=== PATIENT | male | born 1955 | race Caucasian/White ===

== ENCOUNTER 2017-11-08 13:10 | Emergency (ER) | payer MEDICAID, OTHER ==
[~2017-11-08] VITALS: Ht 180.3 cm; Wt 75.0 kg
[~2017-11-08 13:10] MED LIST: [UNRECOGNIZED DRUG - CODE] OT
[2017-11-08 13:41] VITALS: BP 149/90
[2017-11-08] MEDS ORDERED: AMOX500C2 PO (14:07)
== END 2017-11-08 14:22 | disposition home or self-care (01) ==
LOC: ER 13:11
DX: H92.01 Otalgia, right ear (principal); Z79.899 Other long term (current) drug therapy
CPT/HCPCS: 99283

== ENCOUNTER 2019-01-19 12:22 | Inpatient (IN) | payer MEDICAID, OTHER ==
[~2019-01-19] VITALS: Ht 180.3 cm; Wt 72.7 kg
[2019-01-19 12:52] LABS: BASOPHILS % (AUTO) 0.8 % (0-1); EOSINOPHILS # (AUTO) 0.1 X10'3 (0-0.9); EOSINOPHILS % (AUTO) 0.9 % (0-6); HEMATOCRIT 40.2 % (42.0-52.0); HEMOGLOBIN 13.8 g/dl (14.0-17.9); LYMPHOCYTES # (AUTO) 1.7 X10'3 (1.1-4.8); LYMPHOCYTES % (AUTO) 28.3 % (21-51); MEAN CORPUSCULAR HGB CONC 34.5 g/dL (33.0-36.5); MEAN PLATELET VOLUME 7.1 FL (7.4-10.4); MONOCYTES # (AUTO) 0.4 X10'3 (0-0.9); MONOCYTES % (AUTO) 6.7 % (2-12); NEUTROPHILS # (AUTO) 3.9 X10'3 (1.8-7.7); NEUTROPHILS % (AUTO) 63.3 % (42-75); PLATELET COUNT 258 X10'3 (140-440); RED BLOOD COUNT 4.62 X10'6 (4.70-6.10); RED CELL DISTRIBUTION WIDTH 13.2 % (11.5-14.5); WHITE BLOOD COUNT 6.2 X10'3 (4.5-11.0)
[2019-01-19 13:04] LABS: PARTIAL THROMBOPLASTIN TIME 27 SECONDS (22-32)
[2019-01-19] MEDS ORDERED: aspirin 325mg tablet PO ONE (13:10)
[2019-01-19 13:12] LABS: ALANINE AMINOTRANSFERASE 22 U/L (12-78); ALBUMIN 4.2 G/DL (3.4-5.0); ALBUMIN/GLOBULIN RATIO 1.1 (1.1-1.5); ALKALINE PHOSPHATASE 64 IU/L (46-116); ANION GAP 7 (8-16); ASPARTATE AMINO TRANSFERASE 20 U/L (10-37); BILIRUBIN,TOTAL 0.5 MG/DL (0.1-1.0); BLOOD UREA NITROGEN 9 MG/DL (7-18); BUN/CREATININE RATIO 10.8 (5.4-32.0); CALCIUM 8.7 MG/DL (8.5-10.1); CHLORIDE 107 MMOL/L (99-107); CREATININE 0.83 MG/DL (0.60-1.10); GLUCOSE 95 MG/DL (70-104); SODIUM 142 MMOL/L (135-145); TOTAL CARBON DIOXIDE 28.4 MMOL/L (24-32); TOTAL PROTEIN 8.2 G/DL (6.4-8.2); eGFR > 90 ML/MIN
[2019-01-19] MEDS: nitroGLYCERIN 0.4mg SUBLingual tab SL PRN ×3 (13:15→13:29)
[2019-01-19] MEDS ORDERED: mag hydrox/Alum hydrox/simeth 30ml oral suspension PO PRN (14:25)
[2019-01-19] MEDS ORDERED: morphine 2 MG/ML inj. syringe IV PRN ×2 (14:25)
[2019-01-19] MEDS ORDERED: acetaminophen 325mg tablet PO PRN (14:25)
[2019-01-19] MEDS ORDERED: ondansetron/PF 4mg/2ml inj IV PRN (14:25)
[2019-01-19] MEDS ORDERED: HYDROcodone/acetaminophen 5mg/325mg tablet PO PRN (14:25)
[2019-01-19] MEDS ORDERED: magnesium hydroxide 30ml (MOM) UD suspension PO PRN (14:25)
[2019-01-19] MEDS ORDERED: NO HOME MEDS (14:28)
[2019-01-19] MEDS: nitroGLYCERIN 0.4mg/hour patch TD SCH (14:39)
--- NOTE | 2019-01-19 15:57 | NUR ---
PAGED DR. NARANJO TO TELL HIM PT. HAS 5/10 CP DESCRIBES IT PRESSURE TO STERNAL AREA. GETTING A 12-LEAD EKG AND GIVING PT. MORPHINE.
[2019-01-19] MEDS ORDERED: regadenoson 0.4mg/5ml syringe IV ONE (17:55)
[2019-01-19] MEDS ORDERED: nitroGLYCERIN 0.4mg SUBLingual tab SL PRN (17:55)
[2019-01-19] MEDS ORDERED: metoprolol tartrate 1mg/ml inj IV PRN (17:55)
[2019-01-19] MEDS ORDERED: aminophylline 250mg/10ml inj. IV PRN (17:55)
[2019-01-19 20:00] VITALS: BP 143/73
[2019-01-19 22:00] VITALS: BP 120/51
[2019-01-20] VITALS (18 sets, daily range): BP systolic 105–187; BP diastolic 54–97
[2019-01-20 01:05] LABS: BASOPHILS % (AUTO) 0.6 % (0-1); EOSINOPHILS # (AUTO) 0.1 X10'3 (0-0.9); HEMATOCRIT 38.1 % (42.0-52.0); HEMOGLOBIN 13.2 g/dl (14.0-17.9); LYMPHOCYTES # (AUTO) 1.3 X10'3 (1.1-4.8); LYMPHOCYTES % (AUTO) 15.8 % (21-51); MEAN CORPUSCULAR HEMOGLOBIN 29.8 PG (27.0-31.0); MEAN CORPUSCULAR HGB CONC 34.7 g/dL (33.0-36.5); MEAN CORPUSCULAR VOLUME 85.7 FL (78-98); MEAN PLATELET VOLUME 7.5 FL (7.4-10.4); MONOCYTES # (AUTO) 0.6 X10'3 (0-0.9); MONOCYTES % (AUTO) 7.2 % (2-12); NEUTROPHILS # (AUTO) 6.1 X10'3 (1.8-7.7); NEUTROPHILS % (AUTO) 75.4 % (42-75); PLATELET COUNT 233 X10'3 (140-440); RED BLOOD COUNT 4.44 X10'6 (4.70-6.10); WHITE BLOOD COUNT 8.1 X10'3 (4.5-11.0)
[2019-01-20 01:18] LABS: ALBUMIN 3.7 G/DL (3.4-5.0); ANION GAP 7 (8-16); BLOOD UREA NITROGEN 13 MG/DL (7-18); BUN/CREATININE RATIO 15.5 (5.4-32.0); CALCIUM 8.8 MG/DL (8.5-10.1); CHLORIDE 108 MMOL/L (99-107); CREATININE 0.84 MG/DL (0.60-1.10); GLUCOSE 106 MG/DL (70-104); POTASSIUM 3.8 MMOL/L (3.5-5.1); SODIUM 143 MMOL/L (135-145); TOTAL CARBON DIOXIDE 27.7 MMOL/L (24-32); eGFR > 90 ML/MIN
--- NOTE | 2019-01-20 06:18 | NUR ---
Problems reprioritized. Patient report given, questions answered & plan of care reviewed with Teresa BOSTON
--- NOTE | 2019-01-20 06:29 | NUR ---
Received report from Alex BOSTON
[2019-01-20] MEDS: enoxaparin 40mg/0.4ml syringe SUBCUT SCH (08:00)
[2019-01-20] MEDS: nitroGLYCERIN 0.4mg/hour patch TD SCH (08:00)
[2019-01-20] MEDS: normal saline 1000ml 1,000 ML IV SCH (20:53)
[2019-01-21] VITALS (12 sets, daily range): BP systolic 110–153; BP diastolic 67–94
[2019-01-21] MEDS: normal saline 1000ml 1,000 ML IV SCH (04:20)
--- NOTE | 2019-01-21 06:00 | NUR ---
Patient in room [facility]. I have received report from Malou BOSTON and had the opportunity to ask questions and assume patient care.
[2019-01-21 06:18] LABS: BASOPHILS % (AUTO) 0.4 % (0-1); EOSINOPHILS # (AUTO) 0.1 X10'3 (0-0.9); EOSINOPHILS % (AUTO) 2.2 % (0-6); HEMATOCRIT 40.2 % (42.0-52.0); HEMOGLOBIN 13.8 g/dl (14.0-17.9); LYMPHOCYTES # (AUTO) 1.8 X10'3 (1.1-4.8); LYMPHOCYTES % (AUTO) 30.4 % (21-51); MEAN CORPUSCULAR HEMOGLOBIN 29.6 PG (27.0-31.0); MEAN CORPUSCULAR HGB CONC 34.4 g/dL (33.0-36.5); MEAN PLATELET VOLUME 7.8 FL (7.4-10.4); MONOCYTES # (AUTO) 0.5 X10'3 (0-0.9); MONOCYTES % (AUTO) 8.8 % (2-12); NEUTROPHILS # (AUTO) 3.4 X10'3 (1.8-7.7); NEUTROPHILS % (AUTO) 58.2 % (42-75); PLATELET COUNT 250 X10'3 (140-440); RED BLOOD COUNT 4.67 X10'6 (4.70-6.10); RED CELL DISTRIBUTION WIDTH 12.7 % (11.5-14.5); WHITE BLOOD COUNT 5.9 X10'3 (4.5-11.0)
--- NOTE | 2019-01-21 06:31 | NUR ---
Problems reprioritized. Patient report given, questions answered & plan of care reviewed with DARVIN DAVISON.
[2019-01-21 06:46] LABS: ALBUMIN 3.6 G/DL (3.4-5.0); ANION GAP 8 (8-16); BLOOD UREA NITROGEN 12 MG/DL (7-18); BUN/CREATININE RATIO 12.5 (5.4-32.0); CALCIUM 8.5 MG/DL (8.5-10.1); CHLORIDE 109 MMOL/L (99-107); CHOL/HDL RATIO 3.7 (0.00-4.99); CHOLESTEROL 168 MG/DL (0-200); CREATININE 0.96 MG/DL (0.60-1.10); GLUCOSE 89 MG/DL (70-104); HDL CHOLESTEROL 46 MG/DL (35-60); LDL CHOLESTEROL 112 MG/DL (50-100); POTASSIUM 4.1 MMOL/L (3.5-5.1); SODIUM 145 MMOL/L (135-145); TOTAL CARBON DIOXIDE 28.3 MMOL/L (24-32); TRIGLYCERIDES 52 MG/DL (20-135); eGFR 79 ML/MIN
[2019-01-21] MEDS ORDERED: midazolam 2 mg/2 ml injection ONE (07:40)
[2019-01-21] MEDS ORDERED: iohexol 350 MG/ML 50ML vial IV ONE (07:40)
[2019-01-21] MEDS ORDERED: LIDOcaine 1% (10mg/ml)w/preservative injection 20ml MDV ONE (07:40)
[2019-01-21] MEDS ORDERED: iohexol 350MG/ML 100ml bottle IV ONE (07:40)
[2019-01-21] MEDS ORDERED: fentaNYL/PF 50MCG/1 ML 2ML syringe ONE (07:40)
[2019-01-21] MEDS ORDERED: diphenhydrAMINE 50 mg/ml inj ONE (07:57)
[2019-01-21] MEDS ORDERED: hydrocortisone sod succ/PF 100mg/2ml inj. ONE (07:57)
[2019-01-21] MEDS: enoxaparin 40mg/0.4ml syringe SUBCUT SCH (08:00)
[2019-01-21] MEDS ORDERED: metoprolol succinate 25mg (24-HOUR) SR. Tablet PO SCH (08:00)
[2019-01-21] MEDS ORDERED: atorvastatin 20mg tablet PO SCH (08:00)
[2019-01-21] MEDS: nitroGLYCERIN 0.4mg/hour patch TD SCH (08:00)
--- NOTE | 2019-01-21 15:00 | NUR ---
Patient stable for discharge home today. All belongings sent with patient, accompanied by daughter. IV out and discharge instructions given to patient and daughter.
== END 2019-01-21 15:00 | disposition home health service (06) | DRG 287 ==
LOC: ER 12:23 → ED HOLD 15:53 → EDBEDREQ 16:41 → ORTHO 4S 19:20 → OBSVTOIN 01-21 08:50
PROVIDERS: ADMIT Internal Medicine; ATTEND Internal Medicine
PROC: 3E033HZ Introduction of Radioactive Substance into Peripheral Vein, Percutaneous Approach (ICD-10-PCS; 2019-01-20)
PROC: 4A02XM4 Measurement of Cardiac Total Activity, External Approach (ICD-10-PCS; 2019-01-20)
PROC: 4A023N7 Measurement of Cardiac Sampling and Pressure, Left Heart, Percutaneous Approach (ICD-10-PCS; principal; 2019-01-21)
PROC: B2111ZZ Fluoroscopy of Multiple Coronary Arteries using Low Osmolar Contrast (ICD-10-PCS; 2019-01-21)
PROC: B2151ZZ Fluoroscopy of Left Heart using Low Osmolar Contrast (ICD-10-PCS; 2019-01-21)
DX: I25.119 Atherosclerotic heart disease of native coronary artery with unspecified angina pectoris (principal); R94.39 Abnormal result of other cardiovascular function study; E11.65 Type 2 diabetes mellitus with hyperglycemia; I10 Essential (primary) hypertension; I16.0 Hypertensive urgency; Z83.3 Family history of diabetes mellitus; Z87.11 Personal history of peptic ulcer disease; Z87.891 Personal history of nicotine dependence; Z91.041 Radiographic dye allergy status
CPT/HCPCS: 36415; 71045; 78452; 80048; 80053; 80061; 83880; 84484; 85025; 85610; 85730; 87081; 93005; 93017; 93306; 93458; 96361; 96374; 96375; 99152; 99291; A4620; A6258; A9500; C1760; C1769; G0378; J0280; J1200; J1644; J1720; J2001; J2250; J2270; J2405; J2785; J3010; J7030; Q9967